=== PATIENT | female | born 1985 | race Hispanic/Latino ===

== ENCOUNTER → 2019-07-11 | Outpatient (CLI) | payer OTHER ==
--- NOTE | 2019-07-14 11:40 | DEXA ---
AP SPINE L1 - L4 1.012 -1.5 -1.5 LT FEMUR TOTAL 0.848 -1.3 -1.1 LT NECK 0.828 -1.5 -1.2 RT FEMUR TOTAL 0.829 -1.4 -1.3 RT NECK 0.847 -1.4 -1.1 TOTAL BODY TOTAL OTHER COMMENTS: There is low bone density of the spine and hips. The density of the spine has increased 2.4% since 07/08/2017. The density of the left hip has increased 1.7% since 07/08/2017. The increased density of the spine does represent a significant change. The increased density of the left hip does not represent a significant change. FOLLOW-UP: Recommendation for the next bone density exam: 2 years. [place]
== END ==
LOC: M WHC 14:24
PROVIDERS: ATTEND Family Medicine
DX: Z71.1 Person with feared health complaint in whom no diagnosis is made (principal); M85.851 Other specified disorders of bone density and structure, right thigh; M85.852 Other specified disorders of bone density and structure, left thigh; M85.88 Other specified disorders of bone density and structure, other site; Z79.899 Other long term (current) drug therapy

== ENCOUNTER 2020-11-28 08:51 | Day surgery (SDC) | payer OTHER ==
[~2020-11-28] VITALS: Ht 160 cm; Wt 65.8 kg
[~2020-11-28 08:51] MED LIST: FLUO20CA22 PO; HYDR-643 PO; OMEP1CAP73 PO
--- OUTSIDE RECORDS SUMMARY | 2020-11-28 08:55 | CCD ---
Author Author [facility] Address Unknown Phone Unavailable Care Team Providers Care Feeder Driver Name Role Phone ANTECOL, Arlene TRACY MD Unavailable Unavailable ANTECOL, Arlene TRACY MD Unavailable Unavailable ANTECOL, Arlene TRACY MD Unavailable Unavailable ANTECOL, Arlene TRACY MD Unavailable Unavailable ANTECOL, Arlene TRACY MD Unavailable Unavailable ANTECOL, Arlene TRACY MD Unavailable Unavailable ANTECOL, Arlene TRACY MD Unavailable Unavailable ANTECOL, Arlene TRACY MD Unavailable Unavailable ANTECOL, Arlene TRACY MD Unavailable Unavailable ANTECOL, Arlene TRACY MD Unavailable Unavailable ANTECOL, Arlene TRACY MD Unavailable Unavailable ANTECOL, Arlene TRACY MD Unavailable Unavailable ANTECOL, Arlene TRACY MD Unavailable Unavailable ANTECOL, Arlene TRACY MD Unavailable Unavailable ANTECOL, Arlene TRACY MD Unavailable Unavailable ANTECOL, Arlene TRACY MD Unavailable Unavailable ANTECOL, Arlene TRACY MD Unavailable Unavailable ANTECOL, Arlene TRACY MD Unavailable Unavailable ANTECOL, Arlene TRACY MD Unavailable Unavailable ANTECOL, Arlene TRACY MD Unavailable Unavailable ANTECOL, Arlene TRACY MD Unavailable Unavailable ANTECOL, Arlene TRACY MD Unavailable Unavailable ANTECOL, Arlene TRACY MD Unavailable Unavailable ANTECOL, Arlene TRACY MD Unavailable Unavailable ANTECOL, Arlene TRACY MD Unavailable Unavailable ANTECOL, Arlene TRACY MD Unavailable Unavailable ANTECOL, Arlene TRACY MD Unavailable Unavailable ANTECOL, Arlene TRACY MD Unavailable Unavailable ANTECOL, Arlene TRACY MD Unavailable Unavailable ANTECOL, Arlene TRACY MD Unavailable Unavailable ANTECOL, Arlene TRACY MD Unavailable Unavailable ANTECOL, Arlene TRACY MD Unavailable Unavailable ANTECOL, Arlene TRACY MD Unavailable Unavailable ANTECOL, Arlene TRACY MD Unavailable Unavailable ANTECOL, Arlene TRACY MD Unavailable Unavailable ANTECOL, Arlene TRACY MD Unavailable Unavailable ANTECOL, Arlene TRACY MD Unavailable Unavailable ANTECOL, Arlene TRACY MD Unavailable Unavailable ANTECOL, Arlene TRACY MD Unavailable Unavailable ANTECOL, Arlene TRACY MD Unavailable Unavailable ANTECOL, Arlene TRACY MD Unavailable Unavailable ANTECOL, Arlene TRACY MD Unavailable Unavailable ANTECOL, Arlene TRACY MD Unavailable Unavailable ANTECOL, Arlene TRACY MD Unavailable Unavailable ANTECOL, Arlene TRACY MD Unavailable Unavailable ANTECOL, Arlene TRACY MD Unavailable Unavailable ANTECOL, Arlene TRACY MD Unavailable Unavailable ANTECOL, Arlene TRACY MD Unavailable Unavailable ANTECOL, Arlene TRACY MD Unavailable Unavailable ANTECOL, Arlene TRACY MD Unavailable Unavailable ANTECOL, Arlene TRACY MD Unavailable Unavailable ANTECOL, Arlene TRACY MD Unavailable Unavailable ANTECOL, Arlene TRACY MD Unavailable Unavailable ANTECOL, Arlene TRACY MD Unavailable Unavailable ANTECOL, Arlene TRACY MD Unavailable Unavailable Re-disclosure Warning The records that you are about to access may contain information from federally-assisted alcohol or drug abuse programs. If such information is present, then the following federally mandated warning applies: This information has been disclosed to you from records protected by federal confidentiality rules (42 CFR part 2). The federal rules prohibit you from making any further disclosure of this information unless further disclosure is expressly permitted by the written consent of the person to whom it pertains or as otherwise permitted by 42 CFR part 2. A general authorization for the release of medical or other information is NOT sufficient for this purpose. The Federal rules restrict any use of the information to criminally investigate or prosecute any alcohol or drug abuse patient.The records that you are about to access may contain highly sensitive health information, the redisclosure of which is protected by Article 27-F of the [facility] Public Health law. If you continue you may have access to information: Regarding HIV / AIDS; Provided by facilities licensed or operated by the [facility] Office of Mental Health; or Provided by the [facility] Office for People With Developmental Disabilities. If such information is present, then the following [facility] mandated warning applies: This information has been disclosed to you from confidential records which are protected by state law. State law prohibits you from making any further disclosure of this information without the specific written consent of the person to whom it pertains, or as otherwise permitted by law. Any unauthorized further disclosure in violation of state law may result in a fine or residential sentence or both. A general authorization for the release of medical or other information is NOT sufficient authorization for further disc losure. Encounters Encounter Providers Location Date Indications Data Source(s ) Office Visit Attender: ROSSANA ARTIS MD Main Office 10/02/2020 08: 45:00 AM EST [facility] ([facility]) Medications Medication Brand Name Start Date Product Form Dose Route Admi nistrative Instructions Pharmacy Instructions Status Indications Reaction Description Data Source(s) Hydroxyzine Hydrochloride 10 MG Oral Tablet Hydroxyzine HCL 10/01/2020 12:00:00 AM EST active [facility] ([facility]) Omeprazole 20 MG Delayed Release Oral Capsule Omeprazole 10/01/2020 12:00:00 AM EST ORAL active [facility] ([facility]) Fluoxetine 10 MG Oral Tablet Fluoxetine HCL (PMDD) 10/01/2020 12:00 :00 AM EST ORAL active [facility] ([facility]) Insurance Providers Payer name Policy type / Coverage type Policy ID Covered libertarian ID Covered libertarian's relationship to avila Policy Avila Plan Information [facility] [id number] [facility] [id number] Problems, Conditions, and Diagnoses Code Display Name Description Problem Type Effective Dates Data Source(s) 57956914 Right bundle branch block Right bundle branch block Pr oblem 10/02/2020 12:00:00 AM EST [facility] ([facility]) [id number] Electrocardiogram abnormal Electrocardiogram abnormal Problem 10/02/2020 12:00:00 AM EST [facility] ([facility]) [id number] Precordial pain Precordial pain Problem 10/02/2020 12:0 0:00 AM EST [facility] ([facility]) Surgeries/Procedures Procedure Description Date Indications Data Source(s) ECHO TTHRC R-T 2D W/WOM-MODE COMPL SPEC&COLR DOP 11/07 12:00:00 AM EST [facility] ([facility]) ECG ROUTINE ECG W/LEAST 12 LDS W/I&R 10/02/2020 12:00: 00 AM EST [facility] ([facility]) Results ID Date Data Source [id number] 11/23/2020 09:32:00 AM EST [facility] Name Value Range Interpretation Code Description Data Hodan rce(s) Supporting Document(s) SARS coronavirus 2 RNA Not Detected [facility] [place] This lab was ordered by [facility] Laboratory and reported by [facility]. ID Date Data Source [id number] 07/05/2020 05:40:00 PM EDT [facility] ([facility]) Name Value Range Interpretation Code Description Data Hodan rce(s) Supporting Document(s) Hemoglobin A1c/Hemoglobin.total in Blood 5.5 [facility] ([facility]) ID Date Data Source [id number] 07/05/2020 05:40:00 PM EDT [facility] ([facility] Name Value Range Interpretation Code Description Data Hodan rce(s) Supporting Document(s) Triglycerides 91 40-200 [facility] ([facility]) Cholesterol in LDL [Mass/volume] in Serum or Plasma by calculati on 133.0 0-99 [facility] ([facility]) HDL 50 40-92 [facility] ([facility] Cholesterol 198 0-200 [facility] ([facility]) Chol/HDL Ratio 3.96 [facility] ([facility]) ID Date Data Source [id number] 06/28/2020 05:03:00 PM EDT [facility] ([facility]) Name Value Range Interpretation Code Description Data Hodan rce(s) Supporting Document(s) White Blood Count 8.5 4.0-10.0 [facility] ([facility]) Hemoglobin 15.3 [facility] ([facility]) Platelets 240 172-450 [facility] ([facility]) Red Blood Count 4.84 4.00-5.40 [facility] ([facility]) Hematocrit 46.9 [facility] ([facility]) ID Date Data Source [id number] 06/28/2020 05:03:00 PM EDT [facility] Name Value Range Interpretation Code Description Data Hodan rce(s) Supporting Document(s) Troponin Laboratory test result [facility] ([facility]) Natriuretic peptide.B prohormone N-Terminal [Mass/volu me] in Serum or Plasma 13 [facility] ([facility]) Thyroid Stimulating Hormone 1.770 ME DENT ([facility]) Free T4 1.19 [facility] ([facility]) C-Reactive Protein 0.30 [facility] ([facility]) Lipoprotein lipase [Enzymatic activity/volume] in Serum or Plasma 186 [facility] ([facility]) ID Date Data Source [id number] 06/28/2020 05:03:00 PM EDT [facility] Name Value Range Interpretation Code Description Data Hodan rce(s) Supporting Document(s) CPK-MB Laboratory test result [facility] ([facility]) Creatine kinase [Enzymatic activity/volume] in Serum or Plasma 68 [facility] ([facility]) ID Date Data Source [id number] 06/28/2020 05:03:00 PM EDT [facility] ([facility]) Name Value Range Interpretation Code Description Data Hodan rce(s) Supporting Document(s) Alanine aminotransferase [Enzymatic activity/volume] in Serum or Pl asma 18 [facility] ([facility]) Albumin [Mass/volume] in Serum or Plasma 4.4 [facility] ([facility]) Chloride [Moles/volume] in Serum or Plasma 111 [facility] ([facility]) Calcium [Mass/volume] in Serum or Plasma 8.4 [facility] ([facility]) Carbon dioxide, total [Moles/volume] in Serum or Plasma 26 [facility] ([facility]) Alkaline phosphatase [Enzymatic activity/volume] in Serum or Plasma 1 16 [facility] ([facility]) Potassium [Moles/volume] in Serum or Plasma 3.9 [facility] ([facility]) Aspartate aminotransferase [Enzymatic activity/volume] in Serum or Plasma 9 [facility] ([facility]) Sodium 140 [facility] ([facility]) Protein [Mass/volume] in Serum or Plasma 7.9 [facility] ([facility]) Urea nitrogen [Mass/volume] in Serum or Plasma 21 [facility] ([facility]) Glucose 91 83-110 [facility] ([facility]) Creatinine For GFR 0.79 [facility] ([facility]) Procedure Social History Code Duration Value Status Description Data Source(s ) Smoking 10/02/2020 12:00:00 AM EST Patient has never smoked co mpleted Patient has never smoked [facility] ([facility]) Vital Signs ID Date Data Source UNK Name Value Range Interpretation Code Description Data Source(s) Diastolic blood pressure--sitting 64 mm[Hg] 64 mm[Hg] [facility] ([facility]) Omron, adult cuff/Ra Systolic blood pressure--sitting 99 mm[Hg] 99 mm[Hg] [facility] ([facility]) Omron, adult cuff/Ra Heart rate 73 /min 73 /min [facility] ([facility]) Body mass index (BMI) [Ratio] 24.2 kg/m2 24.2 k g/m2 [facility] ([facility]) Body height 64 [in_i] 64 [in_i] DORINDA ([facility]) 5'4" Body weight 141.00 [lb_av] 141.00 [lb_av] KRISTEN Levy ([facility])
--- OUTSIDE RECORDS SUMMARY | 2020-11-28 08:55 | CCD | Continuity of Care Document ---
Author Author Chantelle MILLER Organization Unknown Address [id number] [place] [address], [facility] [place] [address] Phone [phone] Care Team Providers Care Silverware Washer Name Role Phone Carter Saeed MD AUTM [phone] Problems Active Problems Provider Date Precordial pain Lamont Callaway MD Onset: 10/02/2020 Electrocardiogram abnormal Lamont Callaway MD Onset: 10/02 Right bundle branch block Lamont Callaway MD Onset: 2019 Social History Type Date Description Comments Sex Unknown ETOH Use Does not consume alcohol Tobacco Use Start: Unknown Patient has never smoked Smoking Status Reviewed: 10/02/20 Patient has never smoked Exercise Type/Frequency Does housework daily Exercise Limitations None Allergies, Adverse Reactions, Alerts Description No Known Drug Allergies Medications Active Medications SIG Qnty Indications Ordering Provide r Date Fluoxetine HCL (PMDD) 10mg Tablets 2 by mouth once daily Unknown 10/01/[address] 1 by mouth every day Unknown 10/01/2020 Hydroxyzine HCL 10mg Tablets as needed Unknown 10/01/2020 Immunizations Description No Information Available Vital Signs Date Vital Result Comment 10/02/2020 9:31am Weight 141.00 lb Height 64 inches 5'4" BMI (Body Mass Index) 24.2 kg/m2 Heart Rate 73 /min BP Systolic Sitting 99 mmHg Omron, adult cuff/Ra BP Diastolic Sitting 64 mmHg Omron, adult cuff/R a Results Test Acquired Date Facility Test Result H/L Range Note Lipid Profile/Cardiac Risk Pro 07/05/2020 [place] [address] [phone] Triglycerides 91 40-200 Cholesterol 198 0-200 HDL 50 40-92 LDL Cholesterol 133.0 High 0-99 Chol/HDL Ratio 3.96 Hemoglobin A1c 07/05/2020 [place] [address] [phone] Hemoglobin A1c 5.5 CMP 06/28/2020 [facility] - not interfaced (315)- - Albumin Serum/Plasma 4.4 Alt - SGPT 18 Calcium Ser/Plasma Mass/Vol 8.4 Carbon Dioxide Ser/Plasm 26 Chloride Serum/Plasma 111 Alkaline Phosphatase 116 Potassium 3.9 Protein Total 7.9 Sodium 140 Ast - Sgot 9 BUN - Urea Nitrogen 21 Glucose 91 83-110 Creatinine For GFR 0.79 CPK & CPK MB 06/28/2020 [facility] - not interfaced (315)- - CPK 68 CPK-MB <1.0 Laboratory test finding 06/28/2020 [facility] - not interf aced (315)- - Troponin <0.02 NT Probnp QN Ser/Plas 13 Thyroid Stimulating Hormone 1.770 Free T4 1.19 C-Reactive Protein 0.30 Lipase 186 CBC without Differential 06/28/2020 [facility] - not inter faced (315)- - White Blood Count 8.5 4.0-10.0 Red Blood Count 4.84 4.00-5.40 Platelets 240 172-450 Hemoglobin 15.3 Hematocrit 46.9 Procedures Date Code Description Status 11/07/2020 08392 Echocardiogram 2-D Doppler Color Completed 10/02/2020 91788 ECG 12-Lead Completed Medical Devices Description No Information Available Encounters Type Date Location Provider Dx Diagnosis Office Visit 10/02/2020 9:45a Main Office Lamont Callaway MD R07.2 Precordial pain R94.31 Abnormal electrocardiogram [ ECG] [EKG] I45.19 Other right bundle-branch bl ock Assessments Date Code Description Provider 11/07/2020 R07.2 Precordial pain ECHO 11/07/2020 R94.31 Abnormal electrocardiogram [ECG] [EKG] ECHO 10/02/2020 R07.2 Precordial pain Lamont Callaway MD 10/02/2020 R94.31 Abnormal electrocardiogram [ECG] [EKG] Lamont Callaway MD 10/02/2020 I45.19 Other right bundle-branch block Lamont Callaway MD Plan of Treatment 10/02/2020 - Lamont Callaway MD* R07.2 Precordial pain* Recommendations:* Cardiac stress testing was not pursued because the patient's chest pain symptoms are not myocardial ischemic in nature. * R94.31 Abnormal electrocardiogram [ECG] [EKG]* Recommendations:* Echocardiogram-Doppler * I45.19 Other right bundle-branch block * All * Follow up:* Further follow-up, if any, depending upon results of cardiac testing. * Recommendations:* The book "Feeling Great: The Revolutionary New Treatment for Depression and Anxiety" by Lamont Mejias MD was suggested to the patient to assist with self-help in the management of depression and/or anxiety. Functional Status Functional Condition Comment Date Status Independent with all ADL's Activ e Mental Status Description No Information Available Referrals Refer to Dr Reason for Referral Status Appt Date Lamont Callaway MD 1 CLT AUTH EMR - VALID 06/28/20-12/25/20. [place] Created [id number] [facility] [id number] [phone] Lamont Callaway MD 3 OV VALID 06/28/20 - 06/28/21.[place] Created [address] [facility] [id number] [phone]
--- OUTSIDE RECORDS SUMMARY | 2020-11-28 08:55 | CCD | Continuity of Care Document ---
Author Author Chantelle ARTIS MD Organization Unknown Address [address] [place] [address], [facility] [place] [address] Phone [phone] Care Team Providers Care Red Leader Name Role Phone Carter Saeed MD AUTM [phone] Problems Active Problems Provider Date Precordial pain Lamont Artis MD Onset: 10/02/2020 Electrocardiogram abnormal Lamont Artis MD Onset: 10/02 Right bundle branch block Lamont Artis MD Onset: 2019 Social History Type Date [...] Range Note Lipid Profile/Cardiac Risk Pro 07/05/2020 [place] [address] [phone] Triglycerides 91 40-200 Cholesterol 198 0-200 HDL 50 40-92 LDL Cholesterol 133.0 High 0-99 Chol/HDL Ratio 3.96 Hemoglobin A1c 07/05/2020 [place] [address] [phone] Hemoglobin A1c 5.5 CMP 06/28/2020 [facility] - not interfaced (315)- - Albumin Serum/Plasma 4.4 Alt - SGPT 18 Calcium Ser/Plasma Mass/Vol 8.4 Carbon Dioxide Ser/Plasm 26 Chloride Serum/Plasma 111 Alkaline Phosphatase 116 Potassium 3.9 Protein Total 7.9 Sodium 140 Ast - Sgot 9 BUN - Urea Nitrogen 21 Glucose 91 83-110 Creatinine For GFR 0.79 CPK & CPK MB 06/28/2020 [facility] - not interfaced (315)- - CPK 68 CPK-MB <1.0 Laboratory test finding 06/28/2020 [facility] - not interf aced (315)- - Troponin <0.02 NT Probnp QN Ser/Plas 13 Thyroid Stimulating Hormone 1.770 Free T4 1.19 C-Reactive Protein 0.30 Lipase 186 CBC without Differential 06/28/2020 [facility] - not inter faced (315)- - White Blood Count 8.5 4.0-10.0 Red Blood Count 4.84 4.00-5.40 Platelets 240 172-450 Hemoglobin 15.3 Hematocrit 46.9 Procedures Date Code Description Status 10/02/2020 01912 ECG 12-Lead Completed Medical Devices Description No Information Available Encounters Type Date Location Provider Dx Diagnosis Office Visit 10/02/2020 9:45a Main Office Lamont Artis MD R07.2 Precordial pain R94.31 Abnormal electrocardiogram [ ECG] [EKG] I45.19 Other right bundle-branch bl ock Assessments Date Code Description Provider 10/02/2020 R07.2 Precordial pain Lamont Artis MD 10/02/2020 R94.31 Abnormal electrocardiogram [ECG] [EKG] Lamont Artis MD 10/02/2020 I45.19 Other right bundle-branch block Lamont Artis MD Plan of Treatment Future Appointment(s):* 11/07/2020 1:00 pm - ECHO at Main Office 10/02/2020 - Lamont Artis MD* R07.2 Precordial pain * R94.31 Abnormal electrocardiogram [ECG] [EKG]* New Xrays:* US Echocardiogram Transthoracic W Doppler And Color Flow, Scheduled: 11/07/20 * I45.19 Other right bundle-branch block * All * Follow up:* Further follow-up, if any, depending upon results of cardiac testing. Functional Status Functional Condition Comment Date Status Independent with all ADL's Activ e Mental Status Description No Information Available Referrals Refer to Reason for Referral Status Appt Date Lamont Artis MD 1 CLT AUTH EMR - VALID 06/28/20-12/25/20. [place] Created [id number] [facility] [id number] [phone] Lamont Artis MD 3 OV VALID 06/28/20 - 06/28/21.[place] Created [address] [facility] [id number] [phone]
[2020-11-28] MEDS ORDERED: propofoL 500 MG/50 ML VIAL As Ordered ONE (09:54)
[2020-11-28] MEDS ORDERED: LIDOCAINE 2% 100MG/5ML SDV (FOR ANES.) As Ordered ONE (09:54)
[2020-11-28] MEDS ORDERED: fentaNYL 100 MCG/2 ML INJECTION (J3010) As Ordered ONE (09:54)
--- NOTE | 2020-11-28 10:03 | ROOR ---
Patient Name: Chantelle Diaz Procedure Date: 11/28/2020 9:46 AM Date of : 1985 Age: 35 Room: [facility] Gender: Female Note Status: Finalized Procedure: Upper Endoscopy + Biopsies Indications: Heartburn, Exclusion of Crawford's esophagus Providers: Lalo Mendoza MD Referring MD: PORTER BUENROSTRO MD Requesting Provider: Medicines: Monitored Anesthesia Care Complications: No immediate complications. Procedure: Pre-Anesthesia Assessment: - The heart rate, respiratory rate, oxygen saturations, blood pressure, adequacy of pulmonary ventilation, and response to care were monitored throughout the procedure. The Endoscope was introduced through the mouth, and advanced to the second part of duodenum. The upper GI endoscopy was accomplished without difficulty. The patient tolerated the procedure well. Findings: The Z-line was irregular and was found 40 cm from the incisors. Multiple biopsies were obtained with cold forceps for evaluation to rule out Crawford's Esophagus randomly at the gastroesophageal junction. No other significant abnormalities were identified in a careful examination of the stomach. Biopsies were taken with a cold forceps in the gastric antrum for Helicobacter pylori testing. The exam of the duodenum was otherwise normal. Impression: - Z-line irregular, 40 cm from the incisors. - Multiple biopsies were obtained at the gastroesophageal junction. - Biopsies were taken with a cold forceps for Helicobacter pylori testing. - The examination was otherwise normal. Recommendation: - Patient has a contact number available for emergencies. The signs and symptoms of potential delayed complications were discussed with the patient. Return to normal activities tomorrow. Written discharge instructions were provided to the patient. - High fiber diet. - Discharge patient to home. - Follow an antireflux regimen. - Continue present medications. - Await pathology results. - Telephone GI clinic for pathology results in 1 week. - Return to referring physician. - The findings and recommendations were discussed with the patient. Procedure Code(s): --- Professional --- 28803, Esophagogastroduodenoscopy, flexible, transoral; with biopsy, single or multiple Diagnosis Code(s): --- Professional --- K22.8, Other specified diseases of esophagus R12, Heartburn CPT copyright 2019 [employer]. All rights reserved. The codes documented in this report are preliminary and upon venipuncturist review may be revised to meet current compliance requirements. Lalo Mendoza MD Lalo Mendoza MD 11/28/2020 10:02:30 AM Electronically signed by Lalo Mendoza MD Number of Addenda: 0 Note Initiated On: 11/28/2020 9:46 AM Estimated Blood Loss: Estimated blood loss: none.
[2020-11-28 10:25] VITALS: BP 108/55
== END 2020-11-28 10:31 | disposition home or self-care (01) ==
LOC: M OPP 08:51 → MERGE 11:20
PROVIDERS: ATTEND Internal Medicine Gastroenterology
DX: R12 Heartburn (principal); K29.50 Unspecified chronic gastritis without bleeding; K22.8 Other specified diseases of esophagus; F41.9 Anxiety disorder, unspecified; Z79.899 Other long term (current) drug therapy
CPT/HCPCS: 43239; 88305; 88342; J3010

== ENCOUNTER → 2021-09-27 | Outpatient (CLI) | payer OTHER | LOC: M WHC 13:57 | PROVIDERS: ATTEND Family Medicine | DX: R22.1 Localized swelling, mass and lump, neck (principal); Z80.3 Family history of malignant neoplasm of breast | CPT/HCPCS: 76536; 77066; G0279 ==

== ENCOUNTER → 2022-01-02 | Outpatient (CLI) | payer OTHER | LOC: M PLALAB 12:19 | PROVIDERS: ATTEND Surgery | DX: N64.52 Nipple discharge (principal) ==

== ENCOUNTER → 2022-01-21 | Outpatient (CLI) | payer OTHER | LOC: M WHC 13:21 | PROVIDERS: ATTEND Surgery | DX: N64.52 Nipple discharge (principal) ==

== ENCOUNTER → 2022-02-21 | Outpatient (CLI) | payer OTHER | LOC: M RAD 15:48 | PROVIDERS: ATTEND Otolaryngology | DX: R22.1 Localized swelling, mass and lump, neck (principal) ==

== ENCOUNTER → 2022-10-21 | Outpatient (CLI) | payer OTHER | LOC: M RAD 15:31 | PROVIDERS: ATTEND Otolaryngology | DX: R22.1 Localized swelling, mass and lump, neck (principal) ==

== ENCOUNTER 2023-08-22 11:52 | Emergency (ER) | payer OTHER ==
[~2023-08-22] VITALS: Ht 162.6 cm; Wt 72.9 kg
[2023-08-22] MEDS ORDERED: BOOSTRIX VACCINE (TETANUS/DIPHTH/ACEL. PERTUSSIS) 0.5ML SYR IM ONE (13:35)
[2023-08-22] MEDS ORDERED: DERMABOND TOPICAL SKIN ADHESIVE TOP ONE (13:50)
[2023-08-22 13:59] VITALS: BP 115/65; TEMP 98.1; O2SAT 98
== END 2023-08-22 14:01 | disposition home or self-care (01) ==
LOC: M ED 11:52
DX: S61.412A Laceration without foreign body of left hand, initial encounter (principal); Y92.009 Unspecified place in unspecified non-institutional (private) residence as the place of occurrence of the external cause; Y93.89 Activity, other specified; Z79.899 Other long term (current) drug therapy

== ENCOUNTER → 2023-11-30 | Outpatient (CLI) | payer OTHER | LOC: M WHC 13:58 | PROVIDERS: ATTEND Nurse Practitioner Primary Care | DX: Z12.31 Encounter for screening mammogram for malignant neoplasm of breast (principal) ==

== ENCOUNTER → 2023-12-09 | Outpatient (CLI) | payer OTHER | LOC: M WHC 09:22 | PROVIDERS: ATTEND Nurse Practitioner Primary Care | DX: Z12.31 Encounter for screening mammogram for malignant neoplasm of breast (principal) | CPT/HCPCS: 77065; G0279 ==